=== PATIENT | male | born 1950 | race African-American/Black ===

== ENCOUNTER 2016-12-25 23:05 | Emergency (ER) | payer MEDICARE, OTHER ==
--- NOTE | ~2016-12-25 | EKG ---
PATIENT: KATARZYNA CABRAL UNIT #: [id number] Ventricular Rate: 127 BPM Atrial Rate: 127 BPM P-R Interval: 146 ms QRS Duration: 82 ms Q-T Interval: 314 ms QTC Calculation(Bezet): 456 ms P Beacon: 70 degrees Calculated R Beacon: 24 degrees Calculated T Beacon: 82 degrees Diagnosis Line: Sinus tachycardia Diagnosis Line: Minimal voltage criteria for LVH, may be normal Diagnosis Line: variant Diagnosis Line: Nonspecific ST abnormality Diagnosis Line: Otherwise normal ECG Diagnosis Line: No previous ECGs available Diagnosis Line: Confirmed by YESENIA GAINES MD ([id number]) on 12/26/2016 Diagnosis Line: 5:50:18 PM INTERPRETING MD: EDER JONES
--- NOTE | ~2016-12-25 | CR72 ---
[facility] A Service of [facility] & [facility] RADIOLOGY TEXT RESULTS PATIENT: KATARZYNA CABRAL LOCATION: [facility] : [birth year] UNIT #: [id number] AGE: [address]: Payam Ott MD SEX: M ORDER DR: [id number] [facility] [address] [place], [place] [address] [id number] E MR#: [id number] Acc #: [id number] NAME: KATARZYNA CABRAL : 1950 SEX: M STUDY DATE/TIME: 12/26/2016 1:16 UNIT: [facility] ROOM: STUDY DESCRIPTION: CR Chest Single View Portable Attending Physician: Payam Ott M.D. Ordering Physician: Payam Ott M.D. Primary Care Physician: No Primary Care Physician MEDICAL IMAGING REPORT This report is preliminary unless electronic signature is present EXAM Portable chest HISTORY Shortness of air and cough for 1 day. Findings. A single AP portable view of the chest shows both lungs to be clear. The heart is normal in size. The mediastinal contour is normal. No significant bone abnormalities are seen. IMPRESSION Normal portable chest. Dictated by... Jaxson Silver M.D. THIS IS AN ELECTRONICALLY VERIFIED REPORT Jaxson Silver M.D. at 12/26/2016 3:52 PM LLUVIA/edgar TD: 12/26/2016 06:33 JOB #: [id number] MEDICAL IMAGING REPORT Page 1 of 1 COPY
--- NOTE | ~2016-12-25 | CR72 ---
[facility] A Service of [facility] & [facility] RADIOLOGY TEXT RESULTS PATIENT: KATARZYNA CABRAL LOCATION: [facility] : 50 UNIT #: [id number] AGE: [address]: Payam Ott MD SEX: M ORDER DR: [id number] [facility] [address] [place], [place] [address] [id number] E MR#: [id number] Acc #: [id number] NAME: KATARZYNA CABRAL : 1950 SEX: M STUDY DATE/TIME: 12/26/2016 2:50 UNIT: [facility] ROOM: STUDY DESCRIPTION: CR Chest Single View Portable Attending Physician: Payam Ott M.D. Ordering Physician: Payam Ott M.D. Primary Care Physician: Primary Care Physician No MEDICAL IMAGING REPORT This report is preliminary unless electronic signature is present EXAM Portable chest HISTORY Shortness of air and confusion for 1 day. FINDINGS ETT tip is 3 cm above the enoch. Lungs are clear. Cardiac size and pulmonary vascularity are normal. Dictated by... Jaxson Silver M.D. THIS IS AN ELECTRONICALLY VERIFIED REPORT Jaxson Silver M.D. at 12/26/2016 3:57 PM LLUVIA/selin TD: 12/26/2016 07:16 JOB #: [id number] MEDICAL IMAGING REPORT Page 1 of 1 COPY
--- NOTE | ~2016-12-25 | CT71 ---
[facility] A Service of [facility] & [facility] RADIOLOGY TEXT RESULTS PATIENT: KATARZYNA CABRAL LOCATION: [facility] : 50 UNIT #: [id number] AGE: [address]: Payam Ott MD SEX: M ORDER DR: [id number] [facility] [address] [place] [address]. [place], [place] [address] [id number] E MR#: [id number] Acc #: [id number] NAME: KATARZYNA CABRAL : 1950 SEX: M STUDY DATE/TIME: 12/26/2016 0:56 UNIT: [facility] ROOM: STUDY DESCRIPTION: CT Head Wo Contrast Attending Physician: Payam Ott M.D. Ordering Physician: Payam Ott M.D. Primary Care Physician: No Primary Care Physician MEDICAL IMAGING REPORT This report is preliminary unless electronic signature is present EXAM CT brain without contrast HISTORY Unresponsive for [address] exam was performed with one or more of the following radiation dose reduction techniques: automatic exposure control, adjustment of mA and/or kV according to patient size, and iterative reconstruction. FINDINGS CT brain without contrast demonstrates no intracranial hemorrhage, mass or edema. No midline shift or ventricular dilatation or extraaxial fluid collection. 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 IMPRESSION No acute findings. Dictated by... Jaxson Silver M.D. THIS IS AN ELECTRONICALLY VERIFIED REPORT Jaxson Silver M.D. at 12/26/2016 3:50 PM LLUVIA/edgar TD: 12/26/2016 06:17 JOB #: [id number] MEDICAL IMAGING REPORT Page 1 of 1 COPY
[~2016-12-25 23:05] MED LIST: ALFUZOSIN HCL10 MG PO; AUGMENTIN875 MG PO; FOLIC ACID1 MG PO; GABAPENTIN300 M2 PO; HYDROCHLOROTHIA25 MG PO; IBUPROFEN800 MG PO; KEPPRA500 M1 PO; OMEPRAZOLE20 M1 PO; VIAGRA50 MG PO; ZYPREXA PO
[2016-12-25 23:44] LABS: ARTERIAL BLD GAS O2 SATURATION 93.9 % (90.0-100.0); ARTERIAL BLOOD GAS CARBOXY HB 0.8 %sat (0.0-9.0); ARTERIAL BLOOD GAS HCO3 28.3 mmol/L; ARTERIAL BLOOD GAS PCO2 45.7 mmHg (35.0-45.0); ARTERIAL BLOOD GAS PO2 80.5 mmHg (80.0-100); ARTERIAL BLOOD GAS pH 7.401 (7.350-7.450)
[2016-12-25 23:45] LABS: ARTERIAL BLOOD GAS ALLEN TEST NORMAL; ARTERIAL BLOOD GAS ART SITE RIGHT RADIAL; ARTERIAL DRAW? YES
[2016-12-26 01:10] LABS: BASOPHIL% 0.4 % (0-2.5); DIFF IND NO; EOSINOPHIL% 0.1 % (0.0-7.0); HEMATOCRIT 43.3 % (38.0-50.0); HEMOGLOBIN 14.1 gm/dL (13.0-16.0); LYMPHOCYTE# 0.9 X10e3 (1.0-3.5); LYMPHOCYTE% 20.3 % (17.0-45.0); MEAN CELL VOLUME 99.4 FL (83-96); MEAN CORPUSCULAR HEMOGLOBIN 32.4 PG (28-34); MEAN CORPUSCULAR HGB CONC 32.6 g/dL (30-36); MONOCYTE# 0.4 X10e3 (0-1.0); MONOCYTE% 8.7 % (3.0-12.0); NEUTROPHIL# 3.2 X10e3 (1.5-7.1); NEUTROPHIL% 70.5 % (40-75); PLATELET COUNT 139 X10e3 (140-420); RED BLOOD COUNT 4.36 X10e (3.90-5.60); RED CELL DISTRIBUTION WIDTH 14.4 % (11.0-15.5); WHITE BLOOD COUNT 4.6 X10e3 (4.0-10.5)
[2016-12-26 01:22] LABS: POC - CKMB 1.8 ng/mL (0.0-7.9); POC - TROPONIN <0.05 ng/mL (<=0.05)
[2016-12-26 01:28] LABS: INR 0.9; PARTIAL THROMBOPLASTIN TIME 29.2 SECONDS (23.5-31.3); PROTHROMBIN TIME (PATIENT) 10.2 SECONDS (10.0-11.7)
[2016-12-26 01:47] LABS: ALBUMIN SERUM 4.9 g/dL (3.5-5.0); ALKALINE PHOSPHATASE 67 U/L (32-92); ALT (SGPT) 107 U/L (10-40); AST (SGOT) 131 U/L (10-42); BILIRUBIN, DIRECT 0.1 mg/dL (0.0-0.2); BILIRUBIN,INDIRECT 1.1 mg/dL (0.0-0.9); BILIRUBIN,TOTAL 1.2 mg/dL (0.2-2.0); BLOOD UREA NITROGEN 7 mg/dL (9-23); CALCIUM SERUM 9.6 mg/dL (8.4-10.2); CARBON DIOXIDE 17 mmol/L (22-31); CHLORIDE 89 mmol/L (100-111); GLOM FILT RATE Estimated 90.5 mL/min (>60); GLUCOSE FASTING 98 mg/dL (70-110); POTASSIUM 3.3 mmol/L (3.5-5.1); PROTEIN TOTAL SERUM 10.2 g/dL (6.0-8.3); SODIUM 134 mmol/L (135-145)
[2016-12-26 01:48] LABS: ALCOHOL BLOOD <5 mg/dL (0)
[2016-12-26 04:41] LABS: URINE SOURCE CLEAN CATCH
[2016-12-26 04:45] LABS: URINE APPEARANCE CLEAR; URINE BILIRUBIN NEG (NEG); URINE BLOOD 2+ (NEG); URINE COLOR YELLOW; URINE GLUCOSE NEG (NEG); URINE KETONE 2+ (NEG); URINE LEUKOCYTE ESTERASE NEG (NEG); URINE NITRATE NEG (NEG); URINE PROTEIN 2+ (NEG); URINE SPECIFIC GRAVITY 1.016 (1.003-1.035); URINE UROBILINOGEN 0.2 MG/DL (NEG)
[2016-12-26 04:48] LABS: URINE BACTERIA AUWI NEG (NEGATIVE); URINE SQUAMOUS EPITHELIAL CELL NONE SEEN /[HPF]; UWBCS1 AUWI 0-2 (0-5)
[2016-12-26 04:49] LABS: CULTURE INDICATED? NO
== END 2016-12-26 04:36 | disposition hospice, home (50) ==
LOC: CED 23:05
PROVIDERS: Emergency Medicine
DX: G40.901 Epilepsy, unspecified, not intractable, with status epilepticus (principal); Z79.899 Other long term (current) drug therapy
CPT/HCPCS: 31500; 36415; 36600; 70450; 71010; 80048; 80076; 81003; 82553; 82803; 83605; 84484; 85025; 85610; 85730; 87040; 93005; 94002; 96361; 96374; 96375; 96376; 99291; C9254; G0480; J0696; J1953; J2060; J3411; J3475; Q2009